=== PATIENT | male | born 1985 | race Caucasian/White ===

== ENCOUNTER 2018-07-29 12:28 | Emergency (ER) | payer SELFPAY ==
--- NOTE | 2018-07-29 13:40 | ED PDOC ---
HPI: Chest Pain Time Seen by Provider: 07/29/18 13:12 Chief Complaint (Nursing): Chest Pain Chief Complaint (Provider): CP Additional Complaint(s): Pt reports midsternal CP and SOB since last night. States he tried to stop drinking alcohol prior to symptoms starting but could not take it so drank alcohol, last drink this AM (2 beers and hard liquor). Symptoms alleviated after drinking alcohol. Denies cocaine use. Past Medical History Reviewed: Nursing Documentation, Vital Signs Vital Signs: Last Vital Signs Temp 99 F 07/29/18 12:38 Pulse 72 07/29/18 12:38 Resp 16 07/29/18 12:38 BP 153/93 H 07/29/18 12:38 Pulse Ox 95 07/29/18 12:38 - Medical History PMH: Fractures (right ankle - no surgery), HTN Denies: HIV, Chronic Kidney Disease - Family History Family History: States: Unknown Family Hx - Social History Current smoker - smoking cessation education provided: No Alcohol: > 2 Drinks/Day Drugs: Denies - Home Medications Home Medications: Ambulatory Orders Medication Instructions Recorded Folic Acid 1 mg PO DAILY #0 tab 08/25/15 Thiamine [Vitamin B1 Tab] 100 mg PO DAILY #0 tab 08/25/15 chlordiazePOXIDE [Librium] 25 mg PO Q6 #0 cap 08/25/15 - Allergies Allergies/Adverse Reactions: Allergies Allergy/AdvReac Type Severity Reaction Status Date / Time No Known Allergies Allergy Verified 08/24/15 22:31 GABE Risk Score for UA/NSTEMI - GABE Risk Score Age > 64: NO 3 or more CAD Risk Factors: NO Known CAD (Stenosis greater than 50%): NO Aspirin use in past 7 days: NO Severe Angina: NO EKG ST changes greater than 0.5mm: NO Positive Cardiac Marker: NO GABE Score: 0 Risk %: 5% Review of Systems Constitutional: Negative for: Fever, Chills, Sweats Cardiovascular: Positive for: Chest Pain Respiratory: Positive for: Shortness of Breath. Negative for: Cough, Hemoptysis, Sputum, Wheezing Gastrointestinal: Negative for: Nausea, Vomiting, Abdominal Pain, Diarrhea Genitourinary Male: Negative for: Dysuria, Hematuria Neurological: Negative for: Weakness, Numbness, Headache, Dizziness Psych: Negative for: Anxiety, Depression, Withdrawal Physical Exam - Reviewed Nursing Documentation Reviewed: Yes Vital Signs Reviewed: Yes - Physical Exam Appears: Positive for: Well, No Acute Distress Skin: Positive for: Normal Color, Warm, Dry Eye Exam: Positive for: Normal appearance, EOMI, PERRL Cardiovascular/Chest: Positive for: Regular Rate, Rhythm Respiratory: Positive for: Normal Breath Sounds. Negative for: Rales, Rhonchi, Wheezing Gastrointestinal/Abdominal: Positive for: Normal Exam, Bowel Sounds, Soft. Negative for: Tenderness Extremity: Positive for: Normal ROM Neurologic/Psych: Positive for: Alert, entry level marketing assistant II-XII, Oriented. Negative for: Motor/Sensory Deficits, Aphasia, Facial Droop - Laboratory Results Result Diagrams: 07/29/18 14:12 07/29/18 14:12 - ECG O2 Sat by Pulse Oximetry: 95 Medical Decision Making Medical Decision Makin yo male with chest pain. - labs - EKG - CXR Accession No. : [id number] Patient Name / ID : DEON ALCALA / [id number] Exam Date : 07/29/2018 13:23:48 ( Approved ) Study Comment : Sex / Age : M / 33Y Creator : Mushtaq Cristobal MD Dictator : Mushtaq Cristobal MD Machine Stone Polisher : House Mover Supervisor : Mushtaq Cristobal MD Approver2 : Report Date : 07/29/2018 15:47:02 My Comment : Date of service: 07/29/2018 HISTORY: CP COMPARISON: Chest radiograph 08/24/2015. TECHNIQUE: Chest PA and lateral FINDINGS: LUNGS: No active pulmonary disease. PLEURA: No significant pleural effusion identified. No pneumothorax apparent. CARDIOVASCULAR: No aortic atherosclerotic calcification present. Normal cardiac size. No pulmonary vascular congestion. OSSEOUS STRUCTURES: No significant abnormalities. VISUALIZED UPPER ABDOMEN: Normal. OTHER FINDINGS: None. IMPRESSION: No interval acute cardiopulmonary disease appreciated. Disposition - Clinical Impression Clinical Impression: Chest pain, Alcohol intoxication - Disposition Referrals: Alcoholics Anonymous [Outside] [facility] [place] [Outside] Disposition: Routine/Home Disposition Time: 16:00 Condition: STABLE Instructions: Chest Pain, Alcohol Abuse and Alcoholism (DC) Forms: [employer] (Honduran)
[2018-07-29 14:19] LABS: BASO % 1.1 % (0.0-2.0); EOS # 0.1 K/uL (0.0-0.7); EOS % 1.8 % (0.0-4.0); HEMOGLOBIN 15.2 g/dL (12.0-18.0); LYMPH # 1.2 K/uL (1.0-4.3); LYMPH % 26.3 % (20.0-40.0); MEAN CELL VOLUME 89.6 fl (80.0-94.0); MEAN CORPUSCULAR HEMOGLOBIN 29.9 pg (27.0-31.0); MEAN CORPUSCULAR HGB CONC 33.3 g/dL (33.0-37.0); MONO # 0.5 K/uL (0.0-0.8); NEUT # 2.8 K/uL (1.8-7.0); NEUT % 60.8 % (50.0-75.0); NRBC % 0.1 % (0.0-0.0); RBC 5.09 Mil/uL (4.40-5.90); RED CELL DISTRIBUTION WIDTH 12.8 % (11.5-14.5); WHITE BLOOD COUNT 4.5 K/uL (4.8-10.8)
[2018-07-29 14:27] LABS: PROTHROMBIN TIME 11.1 Seconds (9.8-13.1)
[2018-07-29 14:30] LABS: PARTIAL THROMBOPLASTIN TIME 37.5 Seconds (25.6-37.1)
[2018-07-29 14:31] LABS: ALB/GLOB RATIO 1.3 (1.0-2.1); ALBUMIN 4.6 g/dL (3.5-5.0); ALT/SGPT 143 U/L (21-72); AST/SGOT 145 U/L (17-59); BLOOD UREA NITROGEN 8 mg/dl (9-20); CALCIUM 9.6 mg/dL (8.4-10.2); GFR NON-AFRICAN AMERICAN > 60
[2018-07-29 14:34] LABS: D DIMER < 200 ng/mlDDU (0-230)
[2018-07-29 15:45] LABS: URINE BILIRUBIN NEGATIVE (NEGATIVE); URINE BLOOD NEGATIVE (NEGATIVE); URINE CLARITY CLEAR (Clear); URINE COLOR STRAW (YELLOW); URINE GLUCOSE (UA) NEG (NEGATIVE); URINE LEUKOCYTE ESTERASE NEG Leu/uL (Negative); URINE PROTEIN NEGATIVE (NEGATIVE); URINE UROBILINOGEN 0.2-1.0 mg/dL (0.2-1.0)
--- NOTE | 2018-07-29 15:50 | RAD ---
Date of service: 07/29/2018 HISTORY: CP COMPARISON: Chest radiograph 08/24/2015. TECHNIQUE: Chest PA and lateral FINDINGS: LUNGS: No active pulmonary disease. PLEURA: No significant pleural effusion identified. No pneumothorax apparent. CARDIOVASCULAR: No aortic atherosclerotic calcification present. Normal cardiac size. No pulmonary vascular congestion. OSSEOUS STRUCTURES: No significant abnormalities. VISUALIZED UPPER ABDOMEN: Normal. OTHER FINDINGS: None. IMPRESSION: No interval acute cardiopulmonary disease appreciated.
[2018-07-29 15:52] LABS: BARBITURATES, UR NEGATIVE (NEGATIVE); BENZODIAZEPINES, UR NEGATIVE (NEGATIVE); OPIATES, UR NEGATIVE (NEGATIVE); PHENCYCLIDINE, UR NEGATIVE (NEGATIVE)
[2018-07-29 16:43] VITALS: BP 156/69; PULSE 81; RESP 19; TEMP 98.1
--- NOTE | 2018-07-30 14:53 | CARD ---
APPROVED REPORT Date of service: 07/29/2018 EKG Measurement Heart [id number] <Conclusion> Normal sinus rhythm Normal ECG
[2018-07-31 14:19] VITALS: O2SAT 95
== END 2018-07-29 16:41 | disposition home or self-care (01) ==
LOC: H.ER 12:28
DX: R07.89 Other chest pain (principal); F10.129 Alcohol abuse with intoxication, unspecified; I10 Essential (primary) hypertension
CPT/HCPCS: 71046; 80053; 81003; 84484; 85025; 85378; 85610; 85730; 93005; 99284; G0480